=== PATIENT | male | born 1965 | race Caucasian/White ===

== ENCOUNTER → 2020-01-31 | Outpatient (CLI) | payer OTHER ==
[~2020-01-31] VITALS: Ht 177 cm; Wt 147.0 kg
[~2020-01-31] MED LIST: CATHETER FLUSH 10 ML SYR IV PRN
--- NOTE | 2020-01-31 12:46 | Cardiology Stress Test Report ---
Stress Test Report Date of Procedure/Referring: Date of Procedure: Jan 31, 2020 PCP Dyllan Fernández DO Admitting Physician Dyllan Fernández DO Summary: Patient receive a resting and stress dose of Myoview, images were acquired and reviewed in the short axis view, horizontal long axis view and vertical long axis view. TID: 1.15 SSS: 3 SDS: 2 EF: 58 1. Diaphragmatic attenuation with mild ischemia involving the mid to apical inferior wall and inferolateral wall, it could be secondary to diaphragmatic attenuation 2. Normal left ventricular size, normal contractility, EF 58 percent DELGADO ALMAGUER MD Jan 31, 2020 12:46
== END ==
LOC: CARD 07:00
PROVIDERS: ATTEND Internal Medicine
DX: I25.9 Chronic ischemic heart disease, unspecified (principal)
CPT/HCPCS: 78452; 93017; A9502

== ENCOUNTER 2020-03-16 14:31 | Inpatient (IN) | payer OTHER ==
[~2020-03-16] VITALS: Ht 157 cm; Wt 149.0 kg
[2020-03-16] MEDS ORDERED: NS IV 1000 ML 1,000 ML IV SCH (15:01)
--- NOTE | 2020-03-16 15:06 | ED Cough/URI ---
General Chief Complaint: Cough/Cold/Flu Symptoms Stated Complaint: SOB Nursing Triage Note: has had cough x 1 week. Has worsened overnight. O2 sats were checked prior to arrival by family member and states he was 88%. Is 90% on arrival to ED. Denies fevers or shortness of breath. Has had family members diagnosed with COVID. Sepsis Screen: No Definite Risk Source: patient History of Present Illness Date Seen by Provider: Mar 16, 2020 Time Seen by Provider: 14:36 Initial Comments 54-year-old male that has been coughing and sick for over a week. He was feeling more short of breath overnight and into the day. His yesterday in the emergency department from respiratory distress. He has been exposed to his kewxil-tl-ogo that is positive for COVID-19. He has some tightness in his chest and has been having a nonproductive cough. He was denying any fevers or feeling short of breath with exertion. His family members that is a nurse was checking his oxygen saturation in the parking lot while they're waiting on another family member and his O2 sat was hovering around 88%. He had some mild headache. He does have a history of hypertension and diabetes. He denies any smoking but states that he chews tobacco. Allergies and Home Medications Allergies Coded Allergies: sulfamethoxazole (Verified Allergy, Unknown, rash, 03/16/20) trimethoprim (Verified Allergy, Unknown, rash, 03/16/20) Patient Home Medication List Home Medication List Reviewed: Yes Review of Systems Review of Systems Constitutional: No chills, No dizziness, No fever; malaise EENTM: No nose congestion, No throat pain Respiratory: cough; No dyspnea on exertion, No hemoptysis; short of breath; No stridor, No wheezing Cardiovascular: chest pain (tightness) Gastrointestinal: no symptoms reported Genitourinary: other (urine darker in color the last few days) Musculoskeletal: muscle stiffness Skin: No rash Psychiatric/Neurological: Headache (today) Past Wvfezrd-Bnoozw-Jxnkqn Hx Past Med/Social Hx: Reviewed Nursing Past Med/Soc Hx Patient Social History Alcohol Use: Occasionally Uses Recreational Drug Use: No Smoking Status: Current Everyday Smoker Type Used: Smokeless Tobacco 2nd Hand Smoke Exposure: Yes Recent Foreign Travel: No Contact w/Someone Who Travel: No Recent Infectious Disease Expo: Yes Recent Hopitalizations: No Physical Abuse: No Sexual Abuse: No Mistreated: No Fear: No Seasonal Allergies Seasonal Allergies: No Past Medical History Surgeries: Yes (heart cath ) Respiratory: No Cardiac: Yes High Cholesterol, Hypertension Neurological: No Genitourinary: No Gastrointestinal: No Musculoskeletal: Yes Arthritis Endocrine: Yes Diabetes, Insulin dep HEENT: No Cancer: No Psychosocial: No Integumentary: No Blood Disorders: No Adverse Reaction/Blood Tranf: No Physical Exam Vital Signs - First Documented 03/16/20 03/16/20 14:49 14:55 Temp 36.7 Pulse 109 Resp 17 B/P (MAP) 141/81 (101) Pulse Ox 90 O2 Delivery Room Air O2 Flow Rate 92.00 Capillary Refill : Less Than 3 Seconds Height: '" Weight: lbs. oz. kg; 59.00 BMI Method: General Appearance: WD/WN, no apparent distress HEENT: PERRL/EOMI, other (slightly dry mucous membranes) Neck: full range of motion, supple Respiratory: chest non-tender, no respiratory distress, no accessory muscle use, decreased breath sounds Cardiovascular: normal peripheral pulses, tachycardia Gastrointestinal: non tender, soft, no pulsatile mass Extremities: normal range of motion, non-tender, no pedal edema, normal capillary refill Neurologic/Psychiatric: program director air talent II-XII nml as tested, alert, oriented x 3 Skin: normal color, warm/dry Focused Exam Lactate Level 03/16/20 15:10: Lactic Acid Level 1.71 Lactic Acid Level Laboratory Tests Test 03/16/20 15:10 Lactic Acid Level 1.71 MMOL/L (0.50-2.00) Progress/Results/Core Measures Suspected Sepsis Recent Fever Within 48 Hours: No Infection Criteria Present: Suspected New Infection New/Unexplained Altered Menta: No Sepsis Screen: No Definite Risk SIRS Temperature: Pulse: 109 Respiratory Rate: 17 Laboratory Tests 03/16/20 15:10: White Blood Count 4.7 Blood Pressure 141 /81 Mean: 101 03/16/20 15:10: Lactic Acid Level 1.71 Laboratory Tests 03/16/20 15:10: Creatinine 0.78, INR Comment 0.9, Platelet Count 166, Total Bilirubin 0.4 Results/Orders Lab Results Laboratory Tests Test 03/16/20 15:10 03/16/20 15:20 Range/Units White Blood Count 4.7 4.3-11.0 10^3/uL Red Blood Count 5.04 4.35-5.85 10^6/uL Hemoglobin 15.2 13.3-17.7 G/DL Hematocrit 45 40-54 % Mean Corpuscular Volume 89 80-99 FL Mean Corpuscular Hemoglobin 30 25-34 PG Mean Corpuscular Hemoglobin Concent 34 32-36 G/DL Red Cell Distribution Width 13.1 10.0-14.5 % Platelet Count 166 130-400 10^3/uL Mean Platelet Volume 10.3 7.4-10.4 FL Immature Granulocyte % (Auto) 1 % Neutrophils (%) (Auto) 53 42-75 % Lymphocytes (%) (Auto) 25 12-44 % Monocytes (%) (Auto) 21 H 0-12 % Eosinophils (%) (Auto) 0 0-10 % Basophils (%) (Auto) 0 0-10 % Neutrophils # (Auto) 2.5 1.8-7.8 X 10^3 Lymphocytes # (Auto) 1.2 1.0-4.0 X 10^3 Monocytes # (Auto) 1.0 0.0-1.0 X 10^3 Eosinophils # (Auto) 0.0 0.0-0.3 10^3/uL Basophils # (Auto) 0.0 0.0-0.1 10^3/uL Immature Granulocyte # (Auto) 0.0 0.0-0.1 10^3/uL Neutrophils % (Manual) 56 % Lymphocytes % (Manual) 19 % Monocytes % (Manual) 25 % Prothrombin Time 12.4 12.2-14.7 SEC INR Comment 0.9 0.8-1.4 Activated Partial Thromboplast Time 20 L 24-35 SEC Blood Gas Puncture Site LEFT WRIST Blood Gas Patient Temperature 36.7 Arterial Blood pH 7.44 H 7.37-7.43 Arterial Blood Partial Pressure CO2 35 35-45 MMHG Arterial Blood Partial Pressure O2 60 L 79-93 MMHG Arterial Blood HCO3 24 23-27 MMOL/L Arterial Blood Total CO2 24.9 21.0-31.0 MMOL/L Arterial Blood Oxygen Saturation 92 L 94-100 % Arterial Blood Base Excess 0.0 -2.5-2.5 MMOL/L [place]ell Test NEG Blood Gas Ventilator Setting NO Blood Gas Inspired Oxygen ROOM AIR Sodium Level 135 135-145 MMOL/L Potassium Level 4.1 3.6-5.0 MMOL/L Chloride Level 101 98-107 MMOL/L Carbon Dioxide Level 21 21-32 MMOL/L Anion Gap 13 5-14 MMOL/L Blood Urea Nitrogen 17 7-18 MG/DL Creatinine 0.78 0.60-1.30 MG/DL Estimat Glomerular Filtration Rate > 60 BUN/Creatinine Ratio 22 Glucose Level 248 H 70-105 MG/DL Lactic Acid Level 1.71 0.50-2.00 MMOL/L Calcium Level 8.7 8.5-10.1 MG/DL Corrected Calcium 8.9 8.5-10.1 MG/DL Total Bilirubin 0.4 0.1-1.0 MG/DL Aspartate Amino Transf (AST/SGOT) 37 H 5-34 U/L Alanine Aminotransferase (ALT/SGPT) 37 0-55 U/L Alkaline Phosphatase 100 40-136 U/L Troponin I < 0.30 <0.30 NG/ML C-Reactive Protein 9.09 H <0.50 MG/DL Total Protein 7.2 6.4-8.2 GM/DL Albumin 3.7 3.2-4.5 GM/DL Smear Scan LRG PLTS My Orders Orders - SAM PORTILLO MD Monitor-Rhythm Ecg Trace Only (03/16/20 15:) Ed Iv/Invasive Line Start (03/16/20 15:) Cbc With Automated Diff (03/16/20:) Comprehensive Metabolic Panel (03/16/20 15:) Crp Fs (03/16/20 15:) Troponin I Fs (03/16/20 15:) Lactic Acid Analyzer (03/16/20:) Protime With Inr (03/16/20:) Partial Thromboplastin Time (03/16/20 15:) Ekg Tracing (03/16/20 15:) Arterial Blood Gas (03/16/20 15:) Ns Iv 1000 Ml (Sodium Chloride 0.9%) (03/16/20 15:) Oxygen Delivery Set Up (03/16/20 15:) Chest 1 View Ap/Pa Only (03/16/20 15:04) Albuterol Pre-Mix Nebs (Rt) (Proventil (03/16/20 15:25) Svn Small Volume Nebulizer (03/16/20 15:25) Manual Differential (03/16/20 15:10) Coronavirus Sars-Cov-2 So 2019 (03/16/20 16:01) Vital Signs/I&O 03/16/20 03/16/20 14:49 14:55 Temp 36.7 Pulse 109 Resp 17 B/P (MAP) 141/81 (101) Pulse Ox 90 O2 Delivery Room Air O2 Flow Rate 92.00 Capillary Refill : Less Than 3 Seconds Blood Pressure Mean: 101 Progress Note #1: Progress Note Obtain basic labs as well as lactic acid and chest x-ray. Try giving the breathing treatment to help with his relative hypoxia. Give supplemental oxygen. Obtain a room air ABG to determine his level of hypoxia more specifically. Give IV fluids to help with his tachycardia. Progress Note #2: Time: 15:41 Progress Note Labs did not show any acute significant abnormality on his CBC. His EKG shows tachycardia without ischemia. His chest x-ray is showing bilateral pulmonary infiltrates consistent with a viral pneumonia. His oxygen saturation did improve with breathing treatment and supplemental oxygen. He has a normal pH is 7.44 and PCO2 of 35 with a low PO2 of 60. His chemistry is still pending to evaluate his lactic acid and electrolytes with kidney and liver function. Since he is requiring supplemental oxygen to help maintain his O2 level a COVID swab will be ordered and will recommend admission to the patient. 1618 d/w Dr. Marquez for hospitalist service and he accepted pt for admit. Will give Decadron 6 mg po now and daily and for bridge orders have procalcitonin, d dimer, and rapid covid swab ordered for tests to be done on arrival at [facility]. ECG Initial ECG Impression Date: Mar 16, 2020 Initial ECG Impression Time: 15:05 Initial ECG Rate: 104 Initial ECG Rhythm: S.Tach Initial ECG Comparisson: No Previous ECG Available Comment Sinus tachycardia with a heart rate of [address] elevation. NH interval 193 ms. QT interval 351 ms with a QTc interval 462 ms. There is no prior tracing immediately available for comparison. Diagnostic Imaging Diagonstic Imaging: Xray Plain Films/CT/US/NM/MRI: chest Comments NAME: MARLEN GODOY [facility] REC#: [id number] PT STATUS: REG ER : 1965 PHYSICIAN: SAM PORTILLO MD ADMIT DATE: 03/16/20/ER FS Draft Date of Exam:03/16/20 CHEST 1 VIEW AP/PA ONLY Indication: Dyspnea and cough. Comparison: None. Discussion: Single portable upright view of the chest was obtained. There are extensive bilateral pulmonary infiltrates present, likely due to viral pneumonia. Mildly elevated right hemidiaphragm. Normal heart size. No pleural fluid or pneumothorax. No osseous abnormality. Impression: Bilateral pulmonary infiltrates concerning for viral pneumonia. Dictated on workstation # [id number] Dict: 03/16/20 1529 Trans: 03/16/20 1531 [facility] [id number] Interpreted by: DUONG MURO MD Electronically signed by: Departure Communication (Admissions) Time/Spoke to Admitting Phy: 16:[address] Marquez for the hospitalist service as the patient follows with Dr. Fernández as an outpatient. Will start on Decadron 6 mg orally. Once he arrives at [facility] will perform the rapid COVID swab and add on pro calcitonin and d-dimer testing Impression Primary Impression: Hypoxia Additional Impressions: Exposure to COVID-19 virus Bilateral pulmonary infiltrates on chest x-ray Disposition: ADMITTED INPATIENT Condition: Stable Admissions Decision to Admit Reason: Admit from ER (General) Decision to Admit/Date: Mar 16, 2020 Time/Decision to Admit Time: 16:18 Departure-Patient Inst. Referrals: JOSE FERNÁNDEZ DO (PCP/Family) Primary Care Physician SAM PORTILLO MD Mar 16, 2020 15:06
[2020-03-16] MEDS ORDERED: RX-ALBUTEROL INHALER (VENTOLIN HFA) 18 GM IH PRN (15:15)
[2020-03-16 15:25] LABS: ABG OXYGEN SATURATION 92 % (94-100); ABG PCO2 35 MMHG (35-45); ABG PH 7.44 (7.37-7.43); ABG PO2 60 MMHG (79-93); ABG TCO2 24.9 MMOL/L (21.0-31.0); ALLENS TEST NEG; PATIENT TEMP 36.7; VENTILATOR NO
[2020-03-16] MEDS ORDERED: RT-ALBUTEROL SULF 2.5 MG/3 ML PRE-MIX VIAL INH STA (15:25)
[2020-03-16 15:27] LABS: BASOPHILS % (AUTO) 0 % (0-10); EOSINOPHILS % (AUTO) 0 % (0-10); HEMATOCRIT 45 % (40-54); HEMOGLOBIN 15.2 G/DL (13.3-17.7); LYMPHOCYTES # (AUTO) 1.2 X 10^3 (1.0-4.0); LYMPHOCYTES % (AUTO) 25 % (12-44); MEAN CORPUSCULAR HEMOGLOBIN 30 PG (25-34); MEAN CORPUSCULAR HGB CONC 34 G/DL (32-36); MEAN CORPUSCULAR VOLUME 89 FL (80-99); MEAN PLATELET VOLUME 10.3 FL (7.4-10.4); MONOCYTES % (AUTO) 21 % (0-12); NEUTROPHILS # (AUTO) 2.5 X 10^3 (1.8-7.8); NEUTROPHILS % (AUTO) 53 % (42-75); PLATELET COUNT 166 10^3/uL (130-400); WHITE BLOOD COUNT 4.7 10^3/uL (4.3-11.0)
--- NOTE | 2020-03-16 15:32 | Diagnostic Imaging Report ---
Indication: Dyspnea and cough. Comparison: None. Discussion: Single portable upright view of the chest was obtained. There are extensive bilateral pulmonary infiltrates present, likely due to viral pneumonia. Mildly elevated right hemidiaphragm. Normal heart size. No pleural fluid or pneumothorax. No osseous abnormality. Impression: Bilateral pulmonary infiltrates concerning for viral pneumonia. Dictated by: Dictated on workstation # [id number]
[2020-03-16 15:33] LABS: INSPIRED O2 ROOM AIR
[2020-03-16 15:38] LABS: INR 0.9 (0.8-1.4); PROTHROMBIN TIME PATIENT 12.4 SEC (12.2-14.7)
[2020-03-16 15:49] LABS: LYMPHOCYTES % (MANUAL) 19 %; MONOCYTES % (MANUAL) 25 %; NEUTROPHILS % (MANUAL) 56 %; SMEAR SCAN COMMENT LRG PLTS
[2020-03-16 15:52] LABS: CARBON DIOXIDE 21 MMOL/L (21-32); CHLORIDE 101 MMOL/L (98-107); POTASSIUM 4.1 MMOL/L (3.6-5.0); SODIUM 135 MMOL/L (135-145)
[2020-03-16 15:53] LABS: ALANINE AMINOTRANSFERASE 37 U/L (0-55); ALKALINE PHOSPHATASE 100 U/L (40-136); BILIRUBIN,TOTAL 0.4 MG/DL (0.1-1.0); BUN/CREATININE RATIO 22; CALCIUM 8.7 MG/DL (8.5-10.1); CREATININE SERUM 0.78 MG/DL (0.60-1.30); GFR ESTIMATED > 60; GLUCOSE 248 MG/DL (70-105)
[2020-03-16 15:54] LABS: ALBUMIN 3.7 GM/DL (3.2-4.5); TOTAL PROTEIN 7.2 GM/DL (6.4-8.2)
[2020-03-16] MEDS ORDERED: NS IV 1000 ML 1,000 ML ONE (18:32)
[2020-03-16] MEDS: NS IV 1000 ML 1,000 ML IV SCH (18:53)
[2020-03-16] MEDS ORDERED: REMDESIVIR INJ 200 MG in NS (IVPB) 210 ML IV ONE (19:00)
[2020-03-16] MEDS ORDERED: ONDANSETRON 4 MG (ZOFRAN) ORAL DISSOLVE TAB PO PRN (19:00)
[2020-03-16] MEDS ORDERED: polyethylene glycoL POWDER 17 GM (MIRALAX) PACK PO PRN (19:00)
[2020-03-16] MEDS ORDERED: ANTACID SUSP 30 ML UDC (MYLANTA) PO PRN (19:00)
[2020-03-16] MEDS ORDERED: MELATONIN 3 MG TABLET PO PRN (19:00)
[2020-03-16] MEDS ORDERED: diphenhydrAMINE 25 MG TAB (BENADRYL) PO PRN (19:00)
[2020-03-16] MEDS ORDERED: ONDANSETRON 4 MG/2 ML (SDV) Z0FRAN IV PRN (19:00)
[2020-03-16 19:30] VITALS: BP 141/81
[2020-03-16 19:42] VITALS: BP 131/82
[2020-03-16] MEDS ORDERED: RT-ALBUTEROL INHALER HFA (VENTOLIN HFA) 18 GM IH PRN (20:00)
[2020-03-16] MEDS: DOCUSATE SODIUM 100 MG (COLACE) CAP PO SCH (20:14)
[2020-03-16] MEDS: SENNOSIDES 8.6 MG (SENOKOT) TAB PO SCH (20:14)
[2020-03-16 20:47] VITALS: BP 138/89
[2020-03-16] MEDS: inSUlin ASPART (NovoLOG) 1 UNIT/0.01 ML (CHARGE PER UNIT) SC SCH (21:00)
[2020-03-16] MEDS: ENOXAPARIN 60 MG/0.6 ML (LOVENOX) SYR SC SCH (21:00)
[2020-03-16] MEDS: RT-ALBUTEROL INHALER HFA (VENTOLIN HFA) 18 GM IH SCH (22:42)
[2020-03-16 23:41] VITALS: BP 135/83
[2020-03-17] VITALS (9 sets, daily range): BP systolic 120–158; BP diastolic 63–97
[2020-03-17] MEDS: NS IV 1000 ML 1,000 ML IV SCH ×2 (02:55→08:02)
[2020-03-17 06:03] LABS: ALBUMIN 3.5 GM/DL (3.2-4.5); CHLORIDE 107 MMOL/L (98-107); POTASSIUM 4.3 MMOL/L (3.6-5.0); SODIUM 139 MMOL/L (135-145)
[2020-03-17 06:06] LABS: GLUCOSE 293 MG/DL (70-105); TOTAL PROTEIN 6.6 GM/DL (6.4-8.2)
[2020-03-17 06:07] LABS: CARBON DIOXIDE 20 MMOL/L (21-32)
[2020-03-17 06:08] LABS: BILIRUBIN,TOTAL 0.3 MG/DL (0.1-1.0)
[2020-03-17 06:09] LABS: ALKALINE PHOSPHATASE 92 U/L (40-136)
[2020-03-17 06:10] LABS: CREATININE SERUM 0.77 MG/DL (0.60-1.30); GFR ESTIMATED > 60
[2020-03-17 06:11] LABS: BUN/CREATININE RATIO 18
[2020-03-17 06:12] LABS: ALANINE AMINOTRANSFERASE 37 U/L (0-55)
[2020-03-17] MEDS: inSUlin ASPART (NovoLOG) 1 UNIT/0.01 ML (CHARGE PER UNIT) SC SCH ×7 (06:25→20:39)
[2020-03-17] MEDS: ENOXAPARIN 60 MG/0.6 ML (LOVENOX) SYR SC SCH ×2 (08:00→20:04)
[2020-03-17] MEDS: SENNOSIDES 8.6 MG (SENOKOT) TAB PO SCH ×2 (08:01→20:10)
[2020-03-17] MEDS: DOCUSATE SODIUM 100 MG (COLACE) CAP PO SCH ×2 (08:01→20:09)
[2020-03-17] MEDS ORDERED: PHARMACY TO DOSE SQ SCH (09:00)
[2020-03-17] MEDS: RT-ALBUTEROL INHALER HFA (VENTOLIN HFA) 18 GM IH SCH ×2 (09:11→19:43)
[2020-03-17] MEDS ORDERED: ERTU5TAB PO (10:13)
[2020-03-17] MEDS ORDERED: AMLO-250 PO (10:13)
[2020-03-17] MEDS ORDERED: ASPI-1238 PO (10:13)
[2020-03-17] MEDS ORDERED: ZINC50TA58 PO (10:13)
[2020-03-17] MEDS ORDERED: METF-399 PO (10:13)
[2020-03-17] MEDS ORDERED: LOSA100T57 PO (10:13)
[2020-03-17] MEDS ORDERED: CHOL50005 PO (10:13)
[2020-03-17] MEDS ORDERED: TOPI50TA13 PO (10:13)
[2020-03-17] MEDS ORDERED: TEST200V21 IM (10:13)
[2020-03-17] MEDS ORDERED: MONT10TA26 PO (10:13)
[2020-03-17] MEDS ORDERED: PANT40TA52 PO (10:13)
[2020-03-17] MEDS ORDERED: METO-333 PO (10:13)
[2020-03-17] MEDS ORDERED: INSU100I34 SC (10:13)
[2020-03-17] MEDS ORDERED: TRAM50TA3 PO (10:13)
[2020-03-17] MEDS ORDERED: GABA300C PO (10:13)
[2020-03-17] MEDS ORDERED: SEMA1PEN SQ (10:13)
--- NOTE | 2020-03-17 10:23 | NUR ---
SPOKE WITH THE PT (CALLED HIS ROOM PHONE), PT SENT ME HIS MEDICATION LIST AND I WENT THRU THE EXT MED HISTORY TO COMPLETE THE MED REC THE FOLLOWING MEDICATIONS ARE LISTED ON THE EXT MED HISTORY HOWEVER PT IS NO LONGER TAKING: SILDENAFIL 20MG, PHENTERMINE 37.5MG, METOCLOPRAMIDE 5MG, RYBELSUS 14MG OZEMPIC-PT IS GETTING SAMPLES THRU DR. LEWIS UNTIL HIS INSURANCE APPROVES THE MED TOPIRAMATE 50MG LAST FILLED 12-20-2019 #30/30DS- I DOCUMENTED THE PAST DUE FILL ON THE MED REC PT GETS A TESTOSTERONE INJECTION ON THE LAST FRIDAY OF THE MONTH- LAST DOSE PT RECEIVED WAS IN DEC 2019 OTC MEDS: ASPIRIN 81MG ZINC
[2020-03-17] MEDS ORDERED: PANTOPRAZOLE 40 MG (PROTONIX) TAB PO PRN (12:00)
--- NOTE | 2020-03-17 12:01 | History & Physical-Hospitalist ---
History of Present Illness HPI/Chief Complaint Henry Patrick is a 54-year-old male with past medical history of hypertension, insulin-dependent diabetes, GERD, vitiligo, morbid obesity, who presented with hypoxia.his at the [facility] emergency room just a couple days ago. They had both been sick for about a week. He denies any shortness of allyson th. He does have a cough. He denies any fevers or chills. He says sometimes he has issues with sweating. He denies any chest pain. He denies any abdominal pain. He denies any nausea or vomiting. He says his bowel movements have not been completely normal but and also had not been diarrhea. Source: patient Exam Limitations: no limitations Date Seen 03/17/20 Time Seen by a Provider: 10:45 Attending Physician Edu Sheikh MD PCP Dyllan Fernández DO Referring Physician Date of Admission Mar 16, 2020 at 16:18 Home Medications & Allergies Home Medications Reviewed patient Home Medication Reconciliation performed by pharmacy medication reconciliations manufacturing lab technician and/or nursing. Patients Allergies have been reviewed. Allergies Allergies Coded Allergies sulfamethoxazole (Verified Allergy, Unknown, rash, 03/16/20) trimethoprim (Verified Allergy, Unknown, rash, 03/16/20) Past Givvmqv-Yzthrv-Sjmroh Hx Past Med/Social Hx: Reviewed Nursing Past Med/Soc Hx Patient Social History Alcohol Use: Occasionally Uses Recreational Drug Use: No Smoking Status: Current Everyday Smoker Type Used: Smokeless Tobacco 2nd Hand Smoke Exposure: Yes Recent Foreign Travel: No Contact w/other who traveled: No Recent Hopitalizations: No Recent Infectious Disease Expo: Yes Seasonal Allergies Seasonal Allergies: No Past Medical History Cardiac: High Cholesterol, Hypertension Musculoskeletal: Arthritis Endocrine: Diabetes, Insulin dep History of Blood Disorders: No Adverse Reaction to Blood Coronel: No Review of Systems Constitutional: malaise EENTM: no symptoms reported Respiratory: cough Cardiovascular: no symptoms reported Gastrointestinal: no symptoms reported Genitourinary: no symptoms reported Musculoskeletal: no symptoms reported Skin: no symptoms reported Psychiatric/Neurological: No Symptoms Reported Physical Exam Physical Exam Vital Signs Vital Signs - First Documented 03/16/20 03/16/20 14:49 14:55 Temp 36.7 Pulse 109 Resp 17 B/P (MAP) 141/81 (101) Pulse Ox 90 O2 Delivery Room Air O2 Flow Rate 92.00 Capillary Refill : NONELess Than 3 Seconds Height, Weight, BMI Height: '" Weight: lbs. oz. kg; 60.44 BMI Method: General Appearance: No Apparent Distress, Obese HEENT: PERRL/EOMI, Pharynx Normal Neck: Normal Inspection, Supple Respiratory: Lungs Clear, Normal Breath Sounds, No Respiratory Distress Cardiovascular: Regular Rate, Rhythm, No Edema, No Murmur Gastrointestinal: Normal Bowel Sounds, Non Tender, Soft Extremity: Normal Inspection, Non Tender, No Pedal Edema Neurologic/Psychiatric: Alert, Oriented x3, No Motor/Sensory Deficits, Normal Mood/Affect, Other (tearful in discussing his ) Skin: Warm/Dry, Other (vitiligo) Results Results/Procedures Labs Laboratory Tests 03/16/20 15:10 03/17/20 05:35 Patient resulted labs reviewed. Imaging: Reviewed Imaging Report Assessment/Plan Admission Diagnosis Acute respiratory failure due to COVID-19 Admission Status: Inpatient Order (span 2 midnights) Reason for Inpatient Admission: Respiratory failure requring supplemental oxygen Assessment and Plan Acute respiratory failure due to COVID-19 COVID DAYDAY positive Started on Decadron Begin Remdesivir Convalescent plasma ordered, discussed risks/benefits/EUA and patient agrees Supplemental oxygen as needed T2DM with hyperglycemia Steroid induced hyperglycemia Levemir Novolog with meals SSI HTN GERD Continue home meds Vitiligo Obesity Clinically significant, no acute management needs DVT Prophylaxis: Lovenox Diagnosis/Problems Diagnosis/Problems (1) Acute respiratory failure due to COVID-19 Status: Acute (2) Pneumonia due to COVID-19 virus Status: Acute (3) T2DM (type 2 diabetes mellitus) Status: Chronic (4) Steroid-induced hyperglycemia Status: Acute (5) HTN (hypertension) Status: Chronic (6) Vitiligo Status: Chronic (7) Morbid obesity Status: Chronic Clinical Quality Measures DVT/VTE Risk/Contraindication: Risk Factor Score Per Nursin RFS Level Per Nursing on Admit: 4+=Very High EDU SHEIKH MD Mar 17, 2020 12:01
[2020-03-17] MEDS: NS IV 500 ML 500 ML IV SCH (17:21)
[2020-03-17] MEDS: dexAMETHasone 6 MG TAB (DECADRON) PO SCH (17:25)
--- NOTE | 2020-03-17 18:04 | NUR ---
PATIENT SSI HELD THE PATIENT STATED 188 WAS LOW FOR HIM AND HE ALREADY HAD RECEIVED HIS SCHEDULED 6 UNITS OF NOVOLOG. THIS RN WILL CONT TO MONITOR THIS PATIENT.
[2020-03-17] MEDS ORDERED: REMDESIVIR INJ 100 MG in NS (IVPB) 230 ML IV SCH (19:00)
[2020-03-17] MEDS: amLODIPine 5 MG (NORVASC) TAB PO SCH (20:03)
[2020-03-17] MEDS: GABAPENTIN 300 MG (NEURONTIN) CAP PO SCH (20:03)
[2020-03-17] MEDS: MONTELUKAST 10 MG (SINGULAIR) TAB PO SCH (20:03)
[2020-03-17] MEDS: toPIRamate 25 MG (TOPAMAX) TAB PO SCH (20:03)
[2020-03-17] MEDS: LOSARTAN 100 MG (COZAAR) TABLET PO SCH (20:03)
[2020-03-17] MEDS: meTOprolol TARTRATE 25 MG (LOPRESSOR) TABLET PO SCH (20:03)
[2020-03-17] MEDS ORDERED: NON-FORMULARY MEDICATION 1 EA EA (Topiramate 50 MG) PO SCH (21:00)
[2020-03-17] MEDS: ACETAMINOPHEN 325 MG TABLET PO PRN (23:35)
[2020-03-18 04:43] VITALS: BP 149/81
[2020-03-18 05:44] LABS: ALBUMIN 3.6 GM/DL (3.2-4.5)
[2020-03-18 05:45] LABS: CHLORIDE 103 MMOL/L (98-107); POTASSIUM 4.3 MMOL/L (3.6-5.0); SODIUM 136 MMOL/L (135-145)
[2020-03-18 05:46] LABS: CALCIUM 8.4 MG/DL (8.5-10.1)
[2020-03-18 05:47] LABS: GLUCOSE 348 MG/DL (70-105); TOTAL PROTEIN 6.7 GM/DL (6.4-8.2)
[2020-03-18 05:48] LABS: CARBON DIOXIDE 22 MMOL/L (21-32)
[2020-03-18 05:49] LABS: BILIRUBIN,TOTAL 0.4 MG/DL (0.1-1.0)
[2020-03-18 05:50] LABS: ALKALINE PHOSPHATASE 86 U/L (40-136)
[2020-03-18 05:51] LABS: GFR ESTIMATED > 60
[2020-03-18 05:52] LABS: BUN/CREATININE RATIO 19
[2020-03-18 05:53] LABS: ALANINE AMINOTRANSFERASE 70 U/L (0-55)
[2020-03-18] MEDS: inSUlin ASPART (NovoLOG) 1 UNIT/0.01 ML (CHARGE PER UNIT) SC SCH ×3 (06:56→16:45)
[2020-03-18] MEDS: DOCUSATE SODIUM 100 MG (COLACE) CAP PO SCH ×2 (07:35→20:47)
[2020-03-18] MEDS: SENNOSIDES 8.6 MG (SENOKOT) TAB PO SCH ×2 (07:35→20:47)
[2020-03-18] MEDS: NS IV 500 ML 500 ML IV SCH (07:36)
[2020-03-18 08:00] VITALS: BP 131/76
[2020-03-18] MEDS: ENOXAPARIN 60 MG/0.6 ML (LOVENOX) SYR SC SCH ×2 (08:08→20:46)
[2020-03-18] MEDS: ASPIRIN E.C. 81 MG (ECOTRIN) TAB PO SCH (08:08)
[2020-03-18] MEDS: meTOprolol TARTRATE 25 MG (LOPRESSOR) TABLET PO SCH ×2 (08:08→20:46)
[2020-03-18] MEDS: RT-ALBUTEROL INHALER HFA (VENTOLIN HFA) 18 GM IH SCH ×2 (11:06→20:54)
[2020-03-18] MEDS: REMDESIVIR INJ 100 MG in NS (IVPB) 230 ML IV SCH (11:54)
[2020-03-18 12:00] VITALS: BP 147/69
--- NOTE | 2020-03-18 14:06 | Progress Note - Hospitalist ---
Subjective HPI/CC On Admission Date Seen by Provider: Mar 18, 2020 Time Seen by Provider: 11:30 Henry Patrick is a 54-year-old male with past medical history of hypertension, insulin-dependent diabetes, GERD, vitiligo, morbid obesity, who presented with hypoxia.his at the [place] emergency room just a couple days ago. They had both been sick for about a week. He denies any shortness of breath. He does have a cough. He denies any fevers or chills. He says sometimes he has issues with sweating. He denies any chest pain. He denies any abdominal pain. He denies any nausea or vomiting. He says his bowel movements have not been completely normal but and also had not been diarrhea. Subjective/Events-last exam he is feeling better today. He denies shortness of breath. He does have a cough. He is not having fevers. He has been eating and drinking. He has been up and moving around. Focused Exam Lactate Level 03/16/20 15:10: Lactic Acid Level 1.71 Objective Exam Vital Signs Vital Signs Date Time Temp Pulse Resp B/P (MAP) Pulse Ox O2 Delivery O2 Flow Rate FiO2 03/18/20 12:00 36.3 90 20 147/69 (95) Nasal Cannula 2.00 03/18/20 08:00 97 Capillary Refill : NONELess Than 3 Seconds General Appearance: No Apparent Distress, Obese Respiratory: Lungs Clear, Normal Breath Sounds, No Respiratory Distress Cardiovascular: Regular Rate, Rhythm, No Edema, No Murmur Gastrointestinal: Normal Bowel Sounds, Non Tender, Soft Extremity: Normal Inspection, Non Tender, No Pedal Edema Neurologic/Psychiatric: Alert, Oriented x3, No Motor/Sensory Deficits, Normal Mood/Affect Skin: Normal Color, Warm/Dry Results/Procedures Lab Laboratory Tests 03/18/20 05:24 Patient resulted labs reviewed. Imaging: Reviewed Imaging Report Assessment/Plan Assessment and Plan Assess & Plan/Chief Complaint Acute respiratory failure due to COVID-19 Continue Decadron and Remdesivir s/p 1 unit convalescent plasma Supplemental oxygen as needed, requirement improving T2DM with hyperglycemia Steroid induced hyperglycemia Levemir Novolog with meals SSI HTN GERD Continue home meds Vitiligo Obesity Clinically significant, no acute management needs DVT Prophylaxis: Lovenox Diagnosis/Problems Diagnosis/Problems (1) Acute respiratory failure due to COVID-19 Status: Acute (2) Pneumonia due to COVID-19 virus Status: Acute (3) T2DM (type 2 diabetes mellitus) Status: Chronic (4) Steroid-induced hyperglycemia Status: Acute (5) HTN (hypertension) Status: Chronic (6) Vitiligo Status: Chronic (7) Morbid obesity Status: Chronic Clinical Quality Measures DVT/VTE Risk/Contraindication: Risk Factor Score Per Nursin RFS Level Per Nursing on Admit: 4+=Very High EDU SHEIKH MD Mar 18, 2020 14:06
[2020-03-18] MEDS: dexAMETHasone 6 MG TAB (DECADRON) PO SCH (16:33)
[2020-03-18 16:40] VITALS: BP 145/93
[2020-03-18 19:31] VITALS: BP 146/91
[2020-03-18] MEDS: LOSARTAN 100 MG (COZAAR) TABLET PO SCH (20:45)
[2020-03-18] MEDS: MONTELUKAST 10 MG (SINGULAIR) TAB PO SCH (20:45)
[2020-03-18] MEDS: GABAPENTIN 300 MG (NEURONTIN) CAP PO SCH (20:46)
[2020-03-18] MEDS: ACETAMINOPHEN 325 MG TABLET PO PRN (20:46)
[2020-03-18] MEDS: amLODIPine 5 MG (NORVASC) TAB PO SCH (20:46)
[2020-03-18] MEDS: toPIRamate 25 MG (TOPAMAX) TAB PO SCH (20:46)
[2020-03-18 23:38] VITALS: BP 137/89
[2020-03-19 06:14] LABS: ALBUMIN 3.7 GM/DL (3.2-4.5); CHLORIDE 103 MMOL/L (98-107); POTASSIUM 4.5 MMOL/L (3.6-5.0); SODIUM 138 MMOL/L (135-145)
[2020-03-19 06:16] LABS: CALCIUM 8.7 MG/DL (8.5-10.1)
[2020-03-19 06:17] LABS: GLUCOSE 388 MG/DL (70-105)
[2020-03-19 06:18] LABS: CARBON DIOXIDE 22 MMOL/L (21-32)
[2020-03-19 06:19] LABS: BILIRUBIN,TOTAL 0.4 MG/DL (0.1-1.0)
[2020-03-19 06:20] LABS: ALKALINE PHOSPHATASE 112 U/L (40-136); CREATININE SERUM 0.76 MG/DL (0.60-1.30); GFR ESTIMATED > 60
[2020-03-19 06:21] LABS: BUN/CREATININE RATIO 25
[2020-03-19 06:23] LABS: ALANINE AMINOTRANSFERASE 72 U/L (0-55)
[2020-03-19] MEDS: inSUlin ASPART (NovoLOG) 1 UNIT/0.01 ML (CHARGE PER UNIT) SC SCH ×6 (06:37→20:45)
[2020-03-19] MEDS: RT-ALBUTEROL INHALER HFA (VENTOLIN HFA) 18 GM IH SCH ×2 (07:11→20:47)
[2020-03-19] MEDS: DOCUSATE SODIUM 100 MG (COLACE) CAP PO SCH ×2 (07:32→20:46)
[2020-03-19] MEDS: SENNOSIDES 8.6 MG (SENOKOT) TAB PO SCH ×2 (07:32→20:46)
[2020-03-19] MEDS: ENOXAPARIN 60 MG/0.6 ML (LOVENOX) SYR SC SCH ×2 (07:51→20:46)
[2020-03-19] MEDS: ASPIRIN E.C. 81 MG (ECOTRIN) TAB PO SCH (07:52)
[2020-03-19] MEDS: meTOprolol TARTRATE 25 MG (LOPRESSOR) TABLET PO SCH ×2 (07:52→20:46)
[2020-03-19 08:05] VITALS: BP 138/90
[2020-03-19] MEDS: REMDESIVIR INJ 100 MG in NS (IVPB) 230 ML IV SCH (11:36)
[2020-03-19 16:00] VITALS: BP 135/85
--- NOTE | 2020-03-19 16:50 | Progress Note - Hospitalist ---
Subjective HPI/CC On Admission Date Seen by Provider: Mar 19, 2020 Time Seen by Provider: 11:30 Henry Patrick is a 54-year-old male with past medical history of hypertension, insulin-dependent diabetes, GERD, vitiligo, morbid obesity, who presented with hypoxia.his at the [place] emergency room just a couple days ago. They had both been sick for about a week. He denies any shortness of breath. He does have a cough. He denies any fevers or chills. He says sometimes he has issues with sweating. He denies any chest pain. He denies any abdominal pain. He denies any nausea or vomiting. He says his bowel movements have not been completely normal but and also had not been diarrhea. Subjective/Events-last exam He is feeling better. He denies trouble breathing. He is not having fevers. He is not coughing. He has been eating and drinking. He has no other complaints or concerns. Objective Exam Vital Signs Vital Signs Date Time Temp Pulse Resp B/P (MAP) Pulse Ox O2 Delivery O2 Flow Rate FiO2 03/19/20 08:05 36.4 82 20 138/90 (106) 94 Nasal Cannula 1.00 Capillary Refill : NONELess Than 3 Seconds General Appearance: No Apparent Distress, Obese Respiratory: Lungs Clear, Normal Breath Sounds, No Respiratory Distress Cardiovascular: Regular Rate, Rhythm, No Edema, No Murmur Gastrointestinal: Normal Bowel Sounds, Non Tender, Soft Extremity: Normal Inspection, Non Tender, No Pedal Edema Neurologic/Psychiatric: Alert, Oriented x3, No Motor/Sensory Deficits, Normal Mood/Affect Results/Procedures Lab Laboratory Tests 03/19/20 05:30 Patient resulted labs reviewed. Imaging: Reviewed Imaging Report Assessment/Plan Assessment and Plan Assess & Plan/Chief Complaint Acute respiratory failure due to COVID-19 Continue Decadron and Remdesivir s/p 1 unit convalescent plasma Supplemental oxygen as needed, requirement improving T2DM with hyperglycemia Steroid induced hyperglycemia Levemir Novolog with meals SSI HTN GERD Continue home meds Vitiligo Obesity Clinically significant, no acute management needs DVT Prophylaxis: Lovenox Diagnosis/Problems Diagnosis/Problems (1) Acute respiratory failure due to COVID-19 Status: Acute (2) Pneumonia due to COVID-19 virus Status: Acute (3) T2DM (type 2 diabetes mellitus) Status: Chronic (4) Steroid-induced hyperglycemia Status: Acute (5) HTN (hypertension) Status: Chronic (6) Vitiligo Status: Chronic (7) Morbid obesity Status: Chronic Clinical Quality Measures DVT/VTE Risk/Contraindication: Risk Factor Score Per Nursin RFS Level Per Nursing on Admit: 4+=Very High EDU SHEIKH MD Mar 19, 2020 16:50
[2020-03-19] MEDS: dexAMETHasone 6 MG TAB (DECADRON) PO SCH (16:53)
[2020-03-19] MEDS: GABAPENTIN 300 MG (NEURONTIN) CAP PO SCH (20:46)
[2020-03-19] MEDS: toPIRamate 25 MG (TOPAMAX) TAB PO SCH (20:46)
[2020-03-19] MEDS: ACETAMINOPHEN 325 MG TABLET PO PRN (20:46)
[2020-03-19] MEDS: LOSARTAN 100 MG (COZAAR) TABLET PO SCH (20:46)
[2020-03-19] MEDS: amLODIPine 5 MG (NORVASC) TAB PO SCH (20:46)
[2020-03-19] MEDS: MONTELUKAST 10 MG (SINGULAIR) TAB PO SCH (20:46)
[2020-03-20 00:16] VITALS: BP 131/78
--- NOTE | 2020-03-20 04:22 | NUR ---
This pt's daughter, Tima, spoke and texted this nurse off of work phone to obtain information about pt's discharge at 2045. Daughter provided password. Tima also wanted to speak with Social Service about becoming this pt's advanced directive or durable power of clay products glazer. This pt, Henry, and his daughter Tima, was speaking through the pt's phone to this nurse during rounds in his room about this, and Henry gave verbal consent that he wants and is ok with Tima becoming his durable power of clay products glazer or advanced directive. Tima is extremely active in pt's care and strives for his best well being. Will pass onto day shift to set up a SS request per Dr. Marquez's orders.
[2020-03-20] MEDS: inSUlin ASPART (NovoLOG) 1 UNIT/0.01 ML (CHARGE PER UNIT) SC SCH ×4 (06:30→11:11)
[2020-03-20 07:38] LABS: ALANINE AMINOTRANSFERASE 78 U/L (0-55); ALBUMIN 3.6 GM/DL (3.2-4.5); ALKALINE PHOSPHATASE 123 U/L (40-136); BILIRUBIN,TOTAL 0.4 MG/DL (0.1-1.0); BUN/CREATININE RATIO 27; CALCIUM 8.8 MG/DL (8.5-10.1); CARBON DIOXIDE 21 MMOL/L (21-32); CHLORIDE 102 MMOL/L (98-107); CREATININE SERUM 0.77 MG/DL (0.60-1.30); GFR ESTIMATED > 60; POTASSIUM 4.1 MMOL/L (3.6-5.0); SODIUM 135 MMOL/L (135-145); TOTAL PROTEIN 6.7 GM/DL (6.4-8.2)
[2020-03-20 07:50] VITALS: BP 162/101
[2020-03-20 08:04] LABS: GLUCOSE 414 MG/DL (70-105)
[2020-03-20] MEDS: RT-ALBUTEROL INHALER HFA (VENTOLIN HFA) 18 GM IH SCH (08:23)
--- NOTE | 2020-03-20 08:33 | NUR ---
Patient walked 440 feet on room air. Patient does not need oxygen at this time. Addendum: 03/20/20 at 0833 by PABLO LION RT Amended: Links added.
[2020-03-20] MEDS: ASPIRIN E.C. 81 MG (ECOTRIN) TAB PO SCH (08:40)
[2020-03-20] MEDS: ENOXAPARIN 60 MG/0.6 ML (LOVENOX) SYR SC SCH (08:40)
[2020-03-20] MEDS: meTOprolol TARTRATE 25 MG (LOPRESSOR) TABLET PO SCH (08:40)
[2020-03-20] MEDS: SENNOSIDES 8.6 MG (SENOKOT) TAB PO SCH (08:42)
[2020-03-20] MEDS: DOCUSATE SODIUM 100 MG (COLACE) CAP PO SCH (08:42)
--- NOTE | 2020-03-20 09:52 | Discharge Inst-Simple/Standard ---
Discharge Inst-Standard Discharge Medications New, Converted or Re-Newed RX: Transmitted to Pharmacy Patient Instructions/Follow Up Plan of Care/Instructions/FU: Please continue to take your medications as written. Please follow up with your primary care doctor to follow up this hospital stay. Activity as Tolerated: Yes Discharge Diet: ADA Diet Return to The Hospital For: Chest pain, low oxygen levels, shortness of breath, abdominal pain, fevers, confusion, if you feel you are getting worse. KELLEY CHINCHILLA MD Mar 20, 2020 09:52
[2020-03-20] MEDS ORDERED: DEXA6TAB PO (09:56)
--- NOTE | 2020-03-20 09:58 | Discharge Summary ---
Diagnosis/Chief Complaint Date of Admission Mar 16, 2020 at 16:18 Date of Discharge Discharge Date: Mar 20, 2020 Admission Diagnosis Acute respiratory failure due to COVID-19 Primary Care Dyllan Fernández DO Discharge Diagnosis (1) Acute respiratory failure due to COVID-19 Status: Acute (2) Pneumonia due to COVID-19 virus Status: Acute (3) T2DM (type 2 diabetes mellitus) Status: Chronic (4) Steroid-induced hyperglycemia Status: Acute (5) HTN (hypertension) Status: Chronic (6) Vitiligo Status: Chronic (7) Morbid obesity Status: Chronic Discharge Summary Discharge Physical Exam Allergies: Coded Allergies: sulfamethoxazole (Verified Allergy, Unknown, rash, 03/16/20) trimethoprim (Verified Allergy, Unknown, rash, 03/16/20) Vitals & I&Os Vital Signs Date Time Temp Pulse Resp B/P (MAP) Pulse Ox O2 Delivery O2 Flow Rate FiO2 03/20/20 11:30 36.2 78 20 133/82 93 Room Air 03/19/20 20:00 0.00 General Appearance: No Apparent Distress, WD/WN, Obese Respiratory: Lungs Clear, No Respiratory Distress Cardiovascular: Regular Rate, Rhythm, No Murmur Gastrointestinal: Normal Bowel Sounds, Non Tender, Soft Neurologic/Psychiatric: Alert, Oriented x3 Hospital Course Pt was admitted due to acute hypoxic respiratory failure due to COVID19. He was treated with Remdesivir, decadron, and convalscent plasma. He did well and was able to be titrated off oxygen completely. He completed 4/5 doses of remdesivir and was doing well so requested discharge home early. I discussed the regimen with him and his daughter and it being cut short but they were both in agreement with discharge home. He was discharged home in stable condition to follow up with his primary care doctor. Labs (last 24 hrs) Laboratory Tests 03/20/20 05:40: Sodium Level 135, Potassium Level 4.1, Chloride Level 102, Carbon Dioxide Level 21, Anion Gap 12, Blood Urea Nitrogen 21H, Creatinine 0.77, Estimat Glomerular Filtration Rate > 60, BUN/Creatinine Ratio 27, Glucose Level 414*H, Calcium Level 8.8, Corrected Calcium 9.1, Total Bilirubin 0.4, Aspartate Amino Transf (AST/SGOT) 47H, Alanine Aminotransferase (ALT/SGPT) 78H, Alkaline Phosphatase 123, Total Protein 6.7, Albumin 3.6 03/20/20 06:05: Glucometer 366H 03/20/20 10:19: Glucometer 362H Patient resulted labs reviewed. Pending Labs Imaging: Reviewed Imaging Report Discussion & Recommendations Discharge Planning: >30 minutes discharge planning Discharge Home Medications: Active Scripts Active Dexamethasone 6 Mg Tablet 6 Mg PO DAILY@1630 Reported Ozempic (Semaglutide) 1 Mg/0.75 Ml Pen.injctr 1 Mg SQ FRIDAY Aspirin EC (Aspirin) 81 Mg Tablet.dr 81 Mg PO Zinc 50 Mg Tablet 50 Mg PO DAILY Topiramate 50 Mg Tablet 50 Mg PO HS LAST FILLED 12-20-2019 #30 DAY SUPPLY Montelukast Sodium 10 Mg Tablet 10 Mg PO HS Tramadol HCl 50 Mg Tablet 50 Mg PO Q6H PRN Steglatro (Ertugliflozin Pidolate) 5 Mg Tablet 5 Mg PO HS Testosterone Cypionate 200 Mg/1 Ml Vial 1 Ml IM MONTHLY TAKES THE LAST FRIDAY OF THE MONTH Neurontin (Gabapentin) 300 Mg Capsule 600 Mg PO HS TAKES 2 (300MG) CAPS Metformin HCl 1,000 Mg Tablet 1,000 Mg PO BID Pantoprazole Sodium 40 Mg Tablet.dr 40 Mg PO DAILY PRN Losartan Potassium 100 Mg Tablet 100 Mg PO HS Basaglar Kwikpen U-100 (Insulin Glargine,Hum.rec.anlog) 100 Unit/1 Ml Insuln.pen 40 Unit SC HS Metoprolol Tartrate 25 Mg Tablet 25 Mg PO BID Amlodipine Besylate 5 Mg Tablet 5 Mg PO HS D3-50 (Cholecalciferol (Vitamin D3)) 1,250 Mcg Capsule 1,250 Mcg PO THUR Instructions to patient/family Please see electronic discharge instructions given to patient. Clinical Quality Measures DVT/VTE Risk/Contraindication: Risk Factor Score Per Nursin RFS Level Per Nursing on Admit: 4+=Very High KELLEY CHINCHILLA MD Mar 20, 2020 09:58
[2020-03-20] MEDS: REMDESIVIR INJ 100 MG in NS (IVPB) 230 ML IV SCH (10:01)
[2020-03-20 10:30] VITALS: BP 133/82
[2020-03-20 11:30] VITALS: BP 133/82
== END 2020-03-20 11:30 | disposition home or self-care (01) | DRG 177 ==
LOC: EDUNIT# 14:31 → ER FS 14:34 → 4TH 16:18 → ER FS 17:27
PROVIDERS: ADMIT Internal Medicine; ATTEND Internal Medicine
PROC: XW033E5 Introduction of Remdesivir Anti-infective into Peripheral Vein, Percutaneous Approach, New Technology Group 5 (ICD-10-PCS; principal; 2020-03-17)
PROC: XW13325 Transfusion of Convalescent Plasma (Nonautologous) into Peripheral Vein, Percutaneous Approach, New Technology Group 5 (ICD-10-PCS; 2020-03-17)
DX: U07.1 COVID-19 (principal); J96.01 Acute respiratory failure with hypoxia; J12.9 Viral pneumonia, unspecified; Z68.44 Body mass index [BMI] 60.0-69.9, adult; I10 Essential (primary) hypertension; E11.65 Type 2 diabetes mellitus with hyperglycemia; F17.290 Nicotine dependence, other tobacco product, uncomplicated; E78.00 Pure hypercholesterolemia, unspecified; M19.91 Primary osteoarthritis, unspecified site; K21.9 Gastro-esophageal reflux disease without esophagitis; E66.01 Morbid (severe) obesity due to excess calories; L80 Vitiligo; T38.0X5A Adverse effect of glucocorticoids and synthetic analogues, initial encounter; Z79.4 Long term (current) use of insulin
CPT/HCPCS: 36415; 71045; 80053; 82805; 82962; 83036; 83605; 84145; 84484; 85007; 85027; 85379; 85610; 85730; 86141; 86900; 86901; 87635; 93005; 93041; 94640; 94664; 94760; 94761

== ENCOUNTER 2021-11-17 13:07 | Emergency (ER) | payer SELFPAY ==
[~2021-11-17] VITALS: Ht 157 cm; Wt 132.8 kg
[~2021-11-17 13:07] MED LIST changes: +AMLO-250 PO; +ASPI-1238 PO; -CATHETER FLUSH 10 ML SYR IV PRN; +CHOL50005 PO; +DEXA6TAB PO; +ERTU5TAB PO; +GABA300C PO; +INSU100I34 SC; +LOSA100T57 PO; +METF-399 PO; +METO-333 PO; +MONT-40 PO; +PANT40TA52 PO; +SEMA1PEN SQ; +TEST200V21 IM; +TOPI50TA13 PO; +TRAM50TA3 PO; +ZINC50TA58 PO
[2021-11-17] MEDS ORDERED: NALOXONE 2 MG/2 ML (NARCAN) SYR ONE (13:14)
[2021-11-17 13:24] LABS: BASOPHILS # (AUTO) 0.1 10^3/uL (0.0-0.1); BASOPHILS % (AUTO) 1 % (0-10); EOSINOPHILS % (AUTO) 0 % (0-10); HEMATOCRIT 44 % (40-54); HEMOGLOBIN 15.1 g/dL (13.3-17.7); LYMPHOCYTES # (AUTO) 1.4 10^3/uL (1.0-4.0); LYMPHOCYTES % (AUTO) 14 % (12-44); MEAN CORPUSCULAR HEMOGLOBIN 31 pg (25-34); MEAN CORPUSCULAR HGB CONC 35 g/dL (32-36); MEAN CORPUSCULAR VOLUME 89 fL (80-99); MEAN PLATELET VOLUME 9.2 fL (9.0-12.2); MONOCYTES # (AUTO) 1.5 10^3/uL (0.0-1.0); MONOCYTES % (AUTO) 14 % (0-12); NEUTROPHILS # (AUTO) 7.3 10^3/uL (1.8-7.8); NEUTROPHILS % (AUTO) 70 % (42-75); PLATELET COUNT 319 10^3/uL (130-400); WHITE BLOOD COUNT 10.4 10^3/uL (4.3-11.0)
[2021-11-17] MEDS ORDERED: NALOXONE 2 MG/2 ML (NARCAN) SYR IV ONE (13:30)
[2021-11-17 13:35] LABS: CHLORIDE 104 MMOL/L (98-107); POTASSIUM 4.2 MMOL/L (3.6-5.0); SODIUM 142 MMOL/L (135-145)
[2021-11-17 13:36] LABS: BILIRUBIN,URINE NEGATIVE (NEGATIVE); CLARITY,URINE CLEAR; COLOR,URINE YELLOW; GLUCOSE, URINE (UA) 3+ (NEGATIVE); KETONES,URINE 3+ (NEGATIVE); LEUKOCYTE ESTERASE ,URINE NEGATIVE (NEGATIVE); NITRITE,URINE NEGATIVE (NEGATIVE); PROTEIN,URINE NEGATIVE (NEGATIVE)
[2021-11-17 13:36] LABS: ALBUMIN 4.1 GM/DL (3.2-4.5)
[2021-11-17 13:37] LABS: CALCIUM 9.8 MG/DL (8.5-10.1)
[2021-11-17 13:38] LABS: GLUCOSE 164 MG/DL (70-105)
[2021-11-17 13:39] LABS: CARBON DIOXIDE 21 MMOL/L (21-32); TOTAL PROTEIN 7.7 GM/DL (6.4-8.2)
[2021-11-17 13:40] LABS: AMPHETAMINE SCREEN, URINE NEGATIVE (NEGATIVE); BARBITURATE SCREEN URINE NEGATIVE (NEGATIVE); BENZODIAZEPINES SCREEN URINE NEGATIVE (NEGATIVE); CANNABINOID SCREEN, URINE NEGATIVE (NEGATIVE); COCAINE SCREEN URINE NEGATIVE (NEGATIVE); METHADONE STAT NEGATIVE (NEGATIVE); OPIATE SCREEN URINE NEGATIVE (NEGATIVE); OXYCODONE STAT NEGATIVE (NEGATIVE); PROPOXYPHENE STAT NEGATIVE (NEGATIVE); TRICYCLIC ANTIDEPRESSANTS SCRE NEGATIVE (NEGATIVE)
[2021-11-17 13:42] LABS: ALKALINE PHOSPHATASE 93 U/L (40-136); CREATININE SERUM 0.75 MG/DL (0.60-1.30); GFR ESTIMATED 106
[2021-11-17 13:42] LABS: BACTERIA,URINE NEGATIVE /HPF
[2021-11-17 13:43] LABS: BUN/CREATININE RATIO 16
[2021-11-17 13:45] LABS: ALANINE AMINOTRANSFERASE 28 U/L (0-55); MAGNESIUM 1.8 MG/DL (1.6-2.4)
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
[2021-11-17 13:51] LABS: ACETAMINOPHEN < 10 UG/ML (10-30)
[2021-11-17] MEDS ORDERED: niCARdipine IV FOR DRIP 50 MG in NS (IVPB) 230 ML IV SCH (14:30)
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
[2021-11-17 15:18] VITALS: BP 164/122
== END 2021-11-17 15:15 | disposition short-term general hospital (02) ==
LOC: EDUNIT# 13:07 → ER 13:08
DX: S06.300A Unspecified focal traumatic brain injury without loss of consciousness, initial encounter (principal); R41.82 Altered mental status, unspecified; I10 Essential (primary) hypertension; E11.9 Type 2 diabetes mellitus without complications; Z79.4 Long term (current) use of insulin; V29.9XXA Motorcycle rider (driver) (passenger) injured in unspecified traffic accident, initial encounter
CPT/HCPCS: 51702; 70450; 70486; 71045; 72125; 80053; 80306; 81000; 82805; 83735; 85025; 93041; 99285; G0480 ×2; 36415; 80320; 80329